=== PATIENT | female | born 1985 | race Caucasian/White ===

== ENCOUNTER 2023-06-27 18:58 | Emergency (ER) | payer OTHER ==
[2023-06-27 19:16] VITALS: BP 137/71; O2SAT 100
--- NOTE | 2023-06-27 19:32 | ED Physician Documentation ---
History of Present Illness - Stated complaint Stated Complaint: BODY PX/MED REFILL - Chief complaint Chief Complaint: Heent - History obtained from History obtained from: Patient - Additonal information Additional information: 38yF with pmh depression, anxiety, adhd, metastatic breast cancer p/w request for medication refills after moving here in February and never establishing care with a pcp. Patient has been stretching her mental health meds and ran out last week. also requesting pcp referral. denies other active concerns. PD PAST MEDICAL HISTORY - Past Medical History Past Medical History: Yes COMBINER: Breast cancer - Past Surgical History Past Surgical History: Yes /COMBINER: Mastectomy, Breast implants - Present Medications Home Medications: Ambulatory Orders Medication Instructions Recorded Confirmed DULoxetine [Cymbalta] 60 mg PO DAILY #30 cap 06/27/23 Fluoxetine HCl 60 mg PO QDAC #30 tablet 06/27/23 Topiramate [Topamax] 100 mg PO QPM #30 tablet 06/27/23 diazePAM [Valium] 5 mg PO TID PRN #15 tablet 06/27/23 - Allergies Allergies/Adverse Reactions: Allergies Allergy/AdvReac Type Severity Reaction Status Date / Time No Known Drug Allergies Allergy Verified 06/27/23 19:11 - Social History Does the pt smoke?: No Smoking Status: Never smoker - Immunizations Immunizations are current?: Yes PD ED PE NORMAL - Vitals Vital signs reviewed: Yes - General General: Alert and oriented X 3, No acute distress, Well developed/nourished - HEENT HEENT: Atraumatic, PERRL, EOMI, Moist mucous membranes, Pharynx benign - Neck Neck: Supple, no meningeal sign - Derm Derm: Normal color, Warm and dry - Neuro Neuro: Alert and oriented X 3 Eye Opening: Spontaneous Motor: Obeys Commands Verbal: Oriented GCS Score: 15 Results - Vitals Vitals: Vital Signs - 24 hr 06/27/23 19:08 Temperature 36.5 C Heart Rate 98 Respiratory 18 Rate Blood Pressure 137/71 H O2 Saturation 100 Oxygen O2 Source Room air PD Medical Decision Making - ED course ED course: 38yF p/w request for medication refills and pcp referral after moving here a few months prior and not yet establishing care with a pcp. She brings her prescription bottles which show last refill date in January 2023. I d/w her that I can fill her mental health medication with exception of adhd meds which she will have to refill with a pcp. return precautions given. Departure - Departure Prescriptions: DULoxetine [Cymbalta] 60 mg PO DAILY #30 cap Fluoxetine HCl 60 mg PO QDAC #30 tablet Topiramate [Topamax] 100 mg PO QPM #30 tablet diazePAM [Valium] 5 mg PO TID PRN #15 tablet PRN Reason: Anxiety Comments: You were seen in the ED for medication refills (electronically sent to [facility]) and referral to primary care. Please follow up with the referral list provided or [facility] [facility] walk in clinic. Return to the ED for new or worsening symptoms or other concerns.
== END 2023-06-27 20:10 | disposition home or self-care (01) ==
LOC: ED 18:58
DX: Z76.0 Encounter for issue of repeat prescription (principal); F32.A Depression, unspecified; C50.919 Malignant neoplasm of unspecified site of unspecified female breast
CPT/HCPCS: 99281; 99282

== ENCOUNTER 2023-07-26 11:23 | Emergency (ER) | payer OTHER ==
[2023-07-26 11:46] LABS: BILIRUBIN,URINE NEGATIVE (NEGATIVE); GLUCOSE, URINE (UA) NEGATIVE (NEGATIVE); KETONES,URINE (UA) NEGATIVE (NEGATIVE); LEUKOCYTE ESTERASE, URINE NEGATIVE (NEGATIVE); NITRITE,URINE NEGATIVE (NEGATIVE); OCCULT BLOOD,URINE NEGATIVE (NEGATIVE); PROTEIN,URINE NEGATIVE (NEGATIVE); UROBILINOGEN,URINE 0.2 (NORMAL) E.U./dL (NORMAL)
[2023-07-26 11:49] LABS: CLARITY,URINE CLEAR (CLEAR)
[2023-07-26 11:55] LABS: BASOPHILS # (AUTO) 0.1 10^3/uL (0.0-0.1); BASOPHILS % (AUTO) 1.9 %; EOSINOPHILS # (AUTO) 0.3 10^3/uL (0.0-0.7); HCT - HEMATOCRIT 42.1 % (37.0-47.0); HGB - HEMOGLOBIN 13.8 g/dL (12.0-16.0); LYMPHOCYTES # (AUTO) 1.1 10^3/uL (1.5-3.5); LYMPHOCYTES % (AUTO) 22.1 %; MEAN CORPUSCULAR HEMOGLOBIN 30.1 pg (27.0-31.0); MEAN CORPUSCULAR HGB CONC 32.8 g/dL (32.0-36.0); MEAN CORPUSCULAR VOLUME 91.7 fL (81.0-99.0); MEAN PLATELET VOLUME 9.2 fL (7.9-10.8); MONOCYTES # (AUTO) 0.5 10^3/uL (0.0-1.0); MONOCYTES % (AUTO) 9.7 %; NEUTROPHILS # (AUTO) 3.1 10^3/uL (1.5-6.6); NEUTROPHILS % (AUTO) 60.5 %; PLT - PLATELET COUNT 250 10^3/uL (130-450); RED BLOOD COUNT 4.59 10^6/uL (4.20-5.40); RED CELL DISTRIBUTION WIDTH 12.2 % (12.0-15.0); WHITE BLOOD COUNT 5.2 x10^3/uL (4.8-10.8)
[2023-07-26 12:09] LABS: ALBUMIN 4.4 g/dL (3.2-5.5); ALBUMIN/GLOBULIN RATIO 1.7 (1.0-2.2); BILIRUBIN,TOTAL 0.4 mg/dL (0.2-1.0); CALCIUM 9.4 mg/dL (8.5-10.3); CREATININE 0.7 mg/dL (0.6-1.3); POTASSIUM 4.7 mmol/L (3.5-4.5)
[2023-07-26 12:16] LABS: HCG UR QUAL NEGATIVE
--- NOTE | 2023-07-26 13:29 | ED Physician Documentation ---
PD HPI NVD - Stated complaint Stated Complaint: N/V/D - Chief complaint Chief Complaint: Abd Pain - History obtained from History obtained from: Patient, Friend - History of Present Illness Timing - onset: How many days ago (5) Timing - duration: Days (5) Timing - details: Gradual onset, Still present, Waxing and waning Associated symptoms: Loss of appetite, Other (diarrhea vomiting and nausea) Contributing factors: Other (history of breast cancer and cannabis use) Improved by: Vomiting, BM, Other (warm bath/hot shower.) Worsened by: Eating Similar symptoms before: No diagnosis Recently seen: Emergency Dept (one month ago.) - Additonal information Additional information: There owen is a 38-year-old female who has previously been treated for stage II breast cancer with 3 out of 5 lymph nodes positive. She has had bilateral mastectomy breast reconstruction with implants and 48 treatments of radiation. She has also had chemotherapy she does not know the names of the medications she has had for this. She has developed nausea and vomiting that she has been having some issues with for months. She does state that she will periodically get some relief with a hot shower warm bath. She does cannabis mostly edibles and she does some high potency syringe edibles as well. She states this has helped with her appetite. She has not had luck with her nausea medications.She has been into the emergency department 1 month ago for refill of her psych medications and she has an appointment to see a primary this coming week. She has not set up oncology care since arriving to the [place] in February. She last her all saw her oncologist in January. Review of Systems Constitutional: denies: Fever Eyes: denies: Decreased vision Ears: denies: Ear pain Nose: denies: Congestion Throat: denies: Sore throat Cardiac: denies: Chest pain / pressure, Palpitations Respiratory: denies: Dyspnea, Cough GI: reports: Nausea, Vomiting, Diarrhea. denies: Abdominal Pain : denies: Dysuria, Frequency Skin: denies: Rash Musculoskeletal: denies: Neck pain, Back pain, Extremity pain Neurologic: reports: Generalized weakness. 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 Psych: Depression, Anxiety, Bipolar disorder, Post traumatic stress disorder Musculoskeletal: Fibromyalgia Other Past Medical History: double mastectomy - Past Surgical History Past Surgical History: Yes /RETAIL REPRESENTATIVE: Mastectomy, Breast implants - Present Medications Home Medications: Ambulatory Orders Medication Instructions Recorded Confirmed Dextroamphetamine/Amphetamine 15 mg ORAL DAILY 06/27/23 07/26/23 [Dextroamp-Amphetamine 5 mg Tab] Duloxetine HCl [Cymbalta] 60 mg ORAL DAILY 06/27/23 07/26/23 Fluoxetine HCl 60 mg PO QDAC #30 tablet 06/27/23 07/26/23 Topiramate [Topamax] 100 mg PO QPM #30 tablet 06/27/23 07/26/23 diazePAM [Valium] 5 mg PO TID PRN #15 tablet 06/27/23 07/26/23 Metoclopramide [Reglan] 10 mg PO Q6H PRN #30 tablet 07/26/23 - Allergies Allergies/Adverse Reactions: Allergies Allergy/AdvReac Type Severity Reaction Status Date / Time No Known Drug Allergies Allergy Verified 07/26/23 11:39 - Social History Does the pt smoke?: No Smoking Status: Never smoker Does the pt have substance abuse?: No - Immunizations Immunizations are current?: Yes PD ED PE NORMAL - Vitals Vital signs reviewed: Yes (Tachycardic and hypertensive) - General General: Alert and oriented X 3, No acute distress, Well developed/nourished - HEENT HEENT: Atraumatic, PERRL, EOMI, Other (Dry mucous membranes) - Neck Neck: Supple, no meningeal sign, No bony TTP - Cardiac Cardiac: RRR, No murmur - Respiratory Respiratory: No respiratory distress, Clear bilaterally - Abdomen Abdomen: Normal bowel sounds, Soft, Non tender, Non distended, No organomegaly - Back Back: No CVA TTP, No spinal TTP - Derm Derm: Normal color, Warm and dry, No rash - Extremities Extremities: No deformity, No edema - Neuro Neuro: Alert and oriented X 3, 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 2-12 intact, No motor deficit, No sensory deficit, Normal speech Eye Opening: Spontaneous Motor: Obeys Commands Verbal: Oriented GCS Score: 15 - Psych Psych: Normal mood, Normal affect Results - Vitals Vitals: Vital Signs - 24 hr 07/26/23 07/26/23 07/26/23 11:33 13:51 14:39 Temperature 36.3 C L 36 C L Heart Rate 105 H 102 H 99 Respiratory 18 18 16 Rate Blood Pressure 131/80 H 117/81 H 129/102 H O2 Saturation 96 97 97 Oxygen O2 Source Room air - Labs Labs: Laboratory Tests 07/26/23 07/26/23 07/26/23 11:40 11:43 11:50 WBC 5.2 RBC 4.59 Hgb 13.8 Hct 42.1 MCV 91.7 MCH 30.1 MCHC 32.8 RDW 12.2 Plt Count 250 MPV 9.2 Neut # (Auto) 3.1 Lymph # (Auto) 1.1 L [place] # (Auto) 0.5 Eos # (Auto) 0.3 Baso # (Auto) 0.1 Absolute Nucleated RBC 0.00 Nucleated RBC % 0.0 Sodium Potassium Chloride Carbon Dioxide Anion Gap BUN Creatinine Estimated GFR (MDRD) Glucose Calcium Total Bilirubin AST ALT Alkaline Phosphatase Total Protein Albumin Globulin Albumin/Globulin Ratio Lipase Urine Color YELLOW Urine Clarity CLEAR Urine pH 8.0 H Ur Specific [place]deavor 1.010 Urine Protein NEGATIVE Urine Glucose (UA) NEGATIVE Urine Ketones NEGATIVE Urine Occult Blood NEGATIVE Urine Nitrite NEGATIVE Urine Bilirubin NEGATIVE Urine Urobilinogen 0.2 (NORMAL) Ur Leukocyte Esterase NEGATIVE Ur Microscopic Review NOT INDICATED Urine Culture Comments NOT INDICATED Urine HCG, Qual NEGATIVE 07/26/23 11:50 WBC RBC Hgb Hct MCV MCH MCHC RDW Plt Count MPV Neut # (Auto) Lymph # (Auto) [place] # (Auto) Eos # (Auto) Baso # (Auto) Absolute Nucleated RBC Nucleated RBC % Sodium 139 Potassium 4.7 H Chloride 105 Carbon Dioxide 29 Anion Gap 5.0 L BUN 13 Creatinine 0.7 Estimated GFR (MDRD) 93 Glucose 98 Calcium 9.4 Total Bilirubin 0.4 AST 16 ALT 21 Alkaline Phosphatase 59 Total Protein 7.0 Albumin 4.4 Globulin 2.6 Albumin/Globulin Ratio 1.7 Lipase 39 Urine Color Urine Clarity Urine pH Ur Specific Endeavor Urine Protein Urine Glucose (UA) Urine Ketones Urine Occult Blood Urine Nitrite Urine Bilirubin Urine Urobilinogen Ur Leukocyte Esterase Ur Microscopic Review Urine Culture Comments Urine HCG, Qual PD Medical Decision Making - ED course Complexity details: considered differential, d/w patient, d/w family Reviewed Lab Results: We reviewed a complete blood count showing a normal white blood cell count normal hemoglobin hematocrit and platelets with normal differential and normal indices. I interpreted these to indicate the patient does not have any evidence of a blood dyscrasia related to any of the treatments that she has endured. Chemistries were remarkable for a potassium elevated at 4.7. Remainder of the electrolytes kidney and liver functions are all normal. The patient did take an electrolyte supplement yesterday. I suspect this may be the reason for the elevated potassium. Urinalysis is unremarkable with the specific gravity 1.0100 and the test is negative. These laboratory studies all appear benign and do not contribute to a specific diagnosis. They do make profound dehydration unlikely overwhelming infection unlikely. ED course: 38-year-old female undergoing treatment for stage II breast cancer who has had a pause in treatment for 6 months presents to the emergency department today with nausea and vomiting not responding to her usual nausea medications. She is getting some relief with a warm shower warm bath or hot shower and I suspect cannabis hyperemesis may be a contributor and today we are treating her with intravenous saline and Inapsine. Because she has been given prior doses of dexamethasone with her treatments we are giving her a dose of dexamethasone here today as well. The patient responds to treatment and wants to go home. We discussed the nature of cannabis hyperemesis and I have recommended abstinence of cannabis. Departure - Departure Disposition: 01 Home, Self Care Clinical Impression: Cannabis hyperemesis syndrome concurrent with and due to cannabis dependence Condition: Stable Instructions: ED Nausea Vomiting Prescriptions: Metoclopramide [Reglan] 10 mg PO Q6H PRN #30 tablet PRN Reason: Nausea / Vomiting Comments: Jessie, today it looks like the nausea and vomiting you are having frequently is likely related to excessive use of cannabis. The recommendation is to abs tain from cannabis use. I have E scribed some Reglan to the [facility] in [place]. This medication may be helpful when you develop significant nausea that is related to cannabis hyperemesis. A follow-up with oncology is indicated by history and my recommendation is to ask your PCP for a referral to our medical manager critical care unit clinic. ([facility] [place] clinic) Forms: PCP List, Activity restrictions Discharge Date/Time: 07/26/23 14:52
[2023-07-26] MEDS: SODIUM CHLORIDE 0.9% 1,000 ML IV STA (13:43)
[2023-07-26] MEDS: DROPERIDOL 5 MG/2 ML VIAL IVP STA (13:45)
[2023-07-26] MEDS: DEXAMETHASONE 10 MG/ML VIAL IVP STA (13:45)
[2023-07-26 13:52] VITALS: O2SAT 97
[2023-07-26 14:47] VITALS: BP 129/102
== END 2023-07-26 14:52 | disposition home or self-care (01) ==
LOC: ED 11:23
DX: R11.2 Nausea with vomiting, unspecified (principal); F12.20 Cannabis dependence, uncomplicated; E87.5 Hyperkalemia
CPT/HCPCS: 36415; 80053; 81001; 81003; 81025; 83690; 85025; 87086; 96374; 99284

== ENCOUNTER 2023-10-01 14:28 | Emergency (ER) | payer OTHER ==
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
[2023-10-01] MEDS: KETOROLAC 30 MG/ML VIAL IM STA (17:54)
[2023-10-01 18:16] LABS: BASOPHILS # (AUTO) 0.1 10^3/uL (0.0-0.1); BASOPHILS % (AUTO) 1.5 %; EOSINOPHILS # (AUTO) 0.2 10^3/uL (0.0-0.7); EOSINOPHILS % (AUTO) 4.6 %; HCT - HEMATOCRIT 42.8 % (37.0-47.0); HGB - HEMOGLOBIN 14.1 g/dL (12.0-16.0); LYMPHOCYTES # (AUTO) 0.9 10^3/uL (1.5-3.5); LYMPHOCYTES % (AUTO) 18.2 %; MEAN CORPUSCULAR HEMOGLOBIN 30.4 pg (27.0-31.0); MEAN CORPUSCULAR HGB CONC 32.9 g/dL (32.0-36.0); MEAN CORPUSCULAR VOLUME 92.2 fL (81.0-99.0); MEAN PLATELET VOLUME 9.1 fL (7.9-10.8); MONOCYTES # (AUTO) 0.4 10^3/uL (0.0-1.0); MONOCYTES % (AUTO) 7.7 %; NEUTROPHILS # (AUTO) 3.5 10^3/uL (1.5-6.6); NEUTROPHILS % (AUTO) 67.4 %; PLT - PLATELET COUNT 300 10^3/uL (130-450); RED BLOOD COUNT 4.64 10^6/uL (4.20-5.40); RED CELL DISTRIBUTION WIDTH 13.3 % (12.0-15.0); WHITE BLOOD COUNT 5.2 x10^3/uL (4.8-10.8)
[2023-10-01 18:25] LABS: MAGNESIUM 1.8 mg/dL (1.7-2.3)
[2023-10-01 18:31] LABS: ALBUMIN 4.4 g/dL (3.2-5.5); ALBUMIN/GLOBULIN RATIO 2.2 (1.0-2.2); BILIRUBIN,TOTAL 0.4 mg/dL (0.2-1.0); CALCIUM 9.3 mg/dL (8.5-10.3); CREATININE 0.6 mg/dL (0.6-1.3); TOTAL PROTEIN 6.4 g/dL (6.4-8.9)
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
[2023-10-01] MEDS: GABAPENTIN 100 MG CAPSULE PO STA (19:41)
[2023-10-01] MEDS: HYDROmorphone 0.5 MG/0.5 ML SYRINGE IVP STA (19:41)
[2023-10-01 20:08] VITALS: BP 146/90; O2SAT 98
== END 2023-10-01 20:07 | disposition home or self-care (01) ==
LOC: ED 14:28
DX: M54.12 Radiculopathy, cervical region (principal); Z79.899 Other long term (current) drug therapy
CPT/HCPCS: 36415; 70450; 72125; 72131; 80053; 83690; 83735; 85025; 96372; 96374; 99283; 99284; A9270; J1170